=== PATIENT | female | born 1945 | race Caucasian/White ===

== ENCOUNTER 2018-08-10 12:31 | Inpatient (IN) | payer MEDICARE, OTHER ==
[~2018-08-10] VITALS: Ht 165.1 cm; Wt 118.3 kg
[2018-08-10 17:59] LABS: BASO % 0.3 % (0.0-2.0); EOS # 0.1 (0.0-0.7); EOS % 0.9 % (0-4.0); GRAN # 8.9 (1.4-6.5); GRAN % 76.5 % (42.2-75.2); HEMATOCRIT 43.8 % (37.0-47.0); HEMOGLOBIN 14.2 g/dl (12.5-16.0); LYMPH % 17.3 % (20.0-51.0); MEAN CELL VOLUME 87 fl (80.0-100.0); MEAN CORPUSCULAR HEMOGLOBIN 28 pg (27.0-31.0); MEAN CORPUSCULAR HGB CONC 32 g/dl (33.0-37.0); MEAN PLATELET VOLUME 10.3 fl (7.4-10.4); MONO # 0.5 (0.1-0.6); MONO % 4.6 % (1.7-9.3); PLATELET COUNT 261 K/mm3 (130-400); RED BLOOD COUNT 5.06 M/mm3 (4.10-5.30); REDCELL DISTRIBUTION WIDTH-CV 13.9 % (11.5-14.5)
[2018-08-10 18:12] LABS: ALBUMIN 4.1 gm/dL (3.5-5.0); BILIRUBIN,TOTAL 0.7 mg/dL (0.0-1.0); CALCIUM 9.4 mg/dL (8.4-10.2); CREATININE, serum 0.68 (0.52-1.25); TOTAL PROTEIN 7.7 gm/dL (6.4-8.2)
--- NOTE | 2018-08-10 19:30 | NUR ---
PATIENT ADMITTED TO FLOOR FROM ER VIA WC ACCOMPANIED BY ER STAFF AND DAUGHTER WILVER. ADMITTED FOR RLE CELLULITIS OF [place]. UPON ARRIVAL A/O X 4. ATTITUDE CALM AND PLEASANT. DENIES C/O PAIN OR DISCOMFORT. STATES "MY LEG JUST FEELS KIM TIGHT". BORDERS OF ERYTHEMA MARKED WITH PEN. DORSAL PEDIS PULSE PRESENT. RLE PRESENTS WITH BRIGHT ERYTHEMA AND 4+ PITTING EDEMA. A TOTAL OF 2 GRAMS OF ANCEF IV GIVEN ORDERED. LOVENOX 40MG SUB Q ADMINISTERED. LISINOPRIL 10MG PO GIVEN. PATIENT EDUCATED ON NEW MEDICATIONS TO INCLUDE REASONS FOR ADMINISTRATION AND POSSIBLE SIDE EFFECTS. ACKNOWLEDGES UNDERSTANDING AND AGREES TO TREATMENT. DICUSSED KEEPING LEGS ELEVATED MUCH POSSIBLE. PATIENT PROVIDED WITH DINNER REQUESTED. NO C/O OF NAUSEA OR VOMITTING. NO ABD PAIN. ORIENTATED TO ROOM. ENCOURAGED TO CALL WHEN NEEDING HELP. PATIENT VERBALIZES UNDERSTANDING AND AGREES TO CALL.
[2018-08-10 20:06] VITALS: BP 167/78; PULSE 86; TEMP 98.2
[2018-08-10 20:28] VITALS: BP 167/78; PULSE 86; TEMP 98.2
[2018-08-10 20:59] LABS: PROTHROMBIN TIME 11.5 SECONDS (9.7-12.8)
[2018-08-10 23:41] VITALS: BP 153/64; PULSE 84; TEMP 98.2
[2018-08-11 04:10] VITALS: BP 146/65; PULSE 79; TEMP 99.3
[2018-08-11 06:06] LABS: BASO % 0.3 % (0.0-2.0); EOS # 0.1 (0.0-0.7); GRAN # 6.6 (1.4-6.5); GRAN % 73.2 % (42.2-75.2); HEMATOCRIT 38.8 % (37.0-47.0); HEMOGLOBIN 12.6 g/dl (12.5-16.0); LYMPH # 1.7 (1.2-3.4); LYMPH % 18.2 % (20.0-51.0); MEAN CELL VOLUME 86 fl (80.0-100.0); MEAN CORPUSCULAR HEMOGLOBIN 28 pg (27.0-31.0); MEAN CORPUSCULAR HGB CONC 33 g/dl (33.0-37.0); MEAN PLATELET VOLUME 10.3 fl (7.4-10.4); MONO # 0.6 (0.1-0.6); PLATELET COUNT 262 K/mm3 (130-400); REDCELL DISTRIBUTION WIDTH-CV 13.8 % (11.5-14.5)
[2018-08-11 06:17] LABS: CALCIUM 8.8 mg/dL (8.4-10.2); CHOLESTEROL RISK RATIO 5.4; CREATININE, serum 0.62 (0.52-1.25); POTASSIUM 3.4 mmol/L (3.4-5.0)
--- NOTE | 2018-08-11 08:00 | NUR ---
PATIENT IS A&O. NOTED ELEVATED B/P, HOME DOSE OF ORAL LISINOPRIL GIVEN WITH AM MEDS. ALL OTHER VSS. NO C/O PAIN. RLE RED AND SWOLLEN. PATIENT ON IV ABX FOR CELLULITIS. PATIENT IS AMBULATING WITHOUT DIFFICULTY AND IS INDEPENDENT. NOTED BLE EDEMA. POSITIVE PEDAL PULSES. BLOOD CULTURES PENDING. HEAD TO TOE ASSESSMENT WNL. NO OTHER NEEDS.
[2018-08-11 08:10] VITALS: BP 154/74; PULSE 80; TEMP 98.1
--- NOTE | 2018-08-11 09:56 | NUR ---
DEBBI met with the patient to discuss discharge plan. The patient lives in [place] with her (Sridhar) and daughter (Nay). She reports independence with ADLs and does not use any DME. The patient's PCP is Dr. Pat Hodgson and she receives her medications at the [facility] in [place]. She reports no difficulties obtaining her meds. The patient does not have advanced directives, but she was interested in obtaining a form for DPOA-HC. DEBBI provided. The patient plans to return home with her family upon discharge. No additional needs at this time.
[2018-08-11 11:40] VITALS: BP 166/83; PULSE 73; TEMP 97.8
--- NOTE | 2018-08-11 11:57 | NUR ---
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 No needs right now.
[2018-08-11 16:02] VITALS: BP 158/75; PULSE 72; TEMP 97.8
[2018-08-11 19:36] VITALS: BP 170/80; PULSE 98; TEMP 98.9
[2018-08-11 23:16] VITALS: BP 166/70; PULSE 72; TEMP 98.6
[2018-08-12 03:41] VITALS: BP 172/68; PULSE 67; TEMP 98.7
[2018-08-12 07:29] LABS: BASO # 0.1 (0.0-0.2); BASO % 0.8 % (0.0-2.0); EOS # 0.2 (0.0-0.7); EOS % 3.3 % (0-4.0); GRAN # 3.4 (1.4-6.5); GRAN % 57.1 % (42.2-75.2); HEMATOCRIT 40.1 % (37.0-47.0); HEMOGLOBIN 12.9 g/dl (12.5-16.0); LYMPH # 1.7 (1.2-3.4); MEAN CELL VOLUME 87 fl (80.0-100.0); MEAN CORPUSCULAR HEMOGLOBIN 28 pg (27.0-31.0); MEAN CORPUSCULAR HGB CONC 32 g/dl (33.0-37.0); MEAN PLATELET VOLUME 10.5 fl (7.4-10.4); MONO # 0.6 (0.1-0.6); MONO % 9.3 % (1.7-9.3); PLATELET COUNT 309 K/mm3 (130-400); RED BLOOD COUNT 4.59 M/mm3 (4.10-5.30); REDCELL DISTRIBUTION WIDTH-CV 13.9 % (11.5-14.5)
--- NOTE | 2018-08-12 08:00 | NUR ---
PT HAS NO C/O PAIN TO LEG UNLESS AREA IS TOUCHED. REDNESS AND WAMRTH NOTED TO RT LEG. PT DOES HAVE EXTREM ELEVATED AT THIS TIME. NO OTHER ISSUES OR CONSERNS VOICED AT THIS TIME.
[2018-08-12 08:34] VITALS: BP 163/78; PULSE 72; TEMP 98.4
[2018-08-12] MEDS ORDERED: CEPHALEXIN500 M1 PO (09:55)
[2018-08-12] MEDS ORDERED: PRINIVIL20 MG PO (09:55)
[2018-08-12] MEDS ORDERED: TYLENOL 325MG325 MG PO (09:55)
--- NOTE | 2018-08-12 10:00 | NUR ---
DISCHARGE ORDER PT INTO COMPUTER. ABX INFUSING PT FAMILY AT BEDSIDE, AND ABLE TO GIVE PT A RIDE HOME. INFORMED THAT WE ARE WORKING ON GETTING PAPERWORK READY AND THEN WHEN ABX DONE WE WILL GO OVER PAPERWORK AND THEN PT WILL BE ABLE TO DISCHARGE.
--- NOTE | 2018-08-12 11:15 | NUR ---
PT IV ABX FINISHED AND IV REMOVED. PT EDUCATION AND PAPERWORK GONE OVER WITH, SIGNATURES OBTAINED. PT GOING TO CHANGE INTO CLOTHES THEN INFORM STAFF WHEN SHE IS READY TO GO HOME.
--- NOTE | 2018-08-12 11:30 | NUR ---
THIS NURSE ESCORTED PT AND OUT OF FACILITY WHILE PTS DAUGHTER BROUGHT THEY VEHICLE UP TO THE FRONT OF THE BUILDING. PT WAS ABLE TO CLIMB INTO PICKUP TRUCK WITHOUT ISSUE. NO ISSUES OR CONSERNS VOICED.
== END 2018-08-12 11:30 | disposition home or self-care (01) | DRG 603 ==
LOC: COL.ER 12:31 → MEDICAL 18:48
PROVIDERS: Nurse Practitioner; Physician Assistant; ADMIT Internal Medicine
DX: L03.115 Cellulitis of right lower limb (principal); I10 Essential (primary) hypertension; I87.8 Other specified disorders of veins; E78.5 Hyperlipidemia, unspecified
CPT/HCPCS: 99222-AI; G0378; J0690; J1650; J7030

== ENCOUNTER → 2019-02-19 | Outpatient (CLI) | payer MEDICARE, OTHER ==
[~2019-02-19] MED LIST: CEPHALEXIN500 M1 PO; PRINIVIL20 MG PO; TYLENOL 325MG325 MG PO
== END ==
LOC: MC.RAD 07:15
DX: Z12.31 Encounter for screening mammogram for malignant neoplasm of breast (principal)